=== PATIENT | female | born 1960 | race Hispanic/Latino ===

== ENCOUNTER → 2020-10-15 | Outpatient (CLI) | payer OTHER ==
[~2020-10-15] MED LIST: DICYCLOMINE HCL20 MG PO; HYDROCHLOROTHIA25 MG PO; NORCO 5-325 TA1 EACH PO; TRICOR48 MG PO; ZOFRAN ODT4 MG PO
== END ==
LOC: MAMMO 12:15
PROVIDERS: ATTEND Obstetrics & Gynecology
DX: Z12.31 Encounter for screening mammogram for malignant neoplasm of breast (principal)
CPT/HCPCS: 77067

== ENCOUNTER → 2024-06-14 | Day surgery (SDC) | payer OTHER ==
[~2024-06-14] MED LIST changes: +LIDOCAINE HCL 2% LOCAL INJ 5 ML SDV VIAL INJ ONE; +LISINOPRIL10 MG PO; +PROPOFOL IV EMULSION 0 ML IV ONE; +PROPOFOL IV EMULSION 10 MG/ML 20 ML VIAL ONE
[2024-06-14] MEDS: LACTATED RINGER'S 1,000 ML ONE (09:13)
[2024-06-14 11:00] VITALS: BP 120/77; PULSE 60; RESP 17; TEMP 97.9; O2SAT 96
== END | disposition home or self-care (01) ==
LOC: OR 06:51
PROVIDERS: ATTEND Internal Medicine Gastroenterology
DX: Z12.11 Encounter for screening for malignant neoplasm of colon (principal); K64.8 Other hemorrhoids; K59.00 Constipation, unspecified; R10.13 Epigastric pain; I10 Essential (primary) hypertension; J45.909 Unspecified asthma, uncomplicated; Z01.810 Encounter for preprocedural cardiovascular examination; Z79.899 Other long term (current) drug therapy; Z86.73 Personal history of transient ischemic attack (TIA), and cerebral infarction without residual deficits; Z80.0 Family history of malignant neoplasm of digestive organs
CPT/HCPCS: 45378; 93005; J2003